=== PATIENT | male | born 1985 | race Caucasian/White ===

== ENCOUNTER 2018-12-03 22:57 | Emergency (ER) | payer SELFPAY ==
[2018-12-03 23:02] VITALS: BP 127/95; PULSE 109; RESP 18; TEMP 36.6; O2SAT 97
--- NOTE | 2018-12-03 23:07 | ED.GENADUL_ITS ---
Discharge Plan Disposition Patient Disposition: HOME Condition: Stable Discharge Details Chief Complaint: Laceration Clinical Impression: Hand laceration Primary Care Provider: None,None ED Provider: Kassandra Regalado Home Meds and New Rx's Prescriptions: No Action No Known Home Meds RF: 0 Discharge Instructions Instructions: Laceration (ED) Additional Instructions: Keep wound clean and dry. Wash the area with soap and water and applied with topical antibiotic ointment 1-2 times daily. Return to the emergency department in 7 days for suture removal or any earlier with any worsening or new concerning symptoms of fever, red streaking, or any worsening symptoms. Discharge Data Discharge Date/Time-TO BE ENTERED AT DEPARTURE: 12/04/18 00:20 Discharge Physician: Kassandra Regalado Medical Decision Making 33-year-old male who presents with right hand laceration sustained when he cut his hand under the edge of a wooden shelf. He denies any foreign body or bony injury. Unknown tetanus status. There is a 2 cm laceration on dorsal hand near base of fourth and fifth metacar pals with no active bleeding, obvious foreign body or bony deformity. Discussed with patient that would recommend an x-ray of his hand to rule out foreign body or fracture but he is declining at this time. He understands the risks of missing diagnoses which can lead to further complications including infection, delayed or abnormal healing, chronic pain and is still declining x- ray at this time. 0010 --wound irrigated well and 3 sutures placed. Wound covered with topical antibiotic ointment and dressing. Patient was instructed to return to the emergency department in 7 days for suture removal and at any time with any worsening symptoms. Medical Records Medical records reviewed: Yes I reviewed the patient's medical records. HPI General Mode of arrival: ambulatory . Date/Time Provider Initiated Documentation: 12/03/18 23:00 . Limitations to Documentation: no limitations . Information obtained by: patient . HPI Narrative: Patient is a 33-year-old male who presents the ED with a right hand laceration sustained just prior to arrival at home. Patient states he is visiting here on vacation and was attempting to reach something off a shelf and cut his right hand on the corner edge of a wooden shelf. He denies any breakage or splinters of the wooden shelf and states it is still intact and denies any foreign bodies within his hand. He denies any bony injury to his right hand. He states he is unsure of his tetanus status. He denies any other injuries, wrist pain. Related Data Home Medications Medication Instructions Recorded Confirmed Unknown [No Known Home Meds] 12/03/18 12/03/18 Allergies Allergy/AdvReac Type Severity Reaction Status Date / Time bee venom protein (honey bee) Allergy Intermediate Unverified 12/03/18 23:06 General Stated Complaint: RashLesion BAILEE: 4 Review of Systems Review of Systems All systems reviewed & are unremarkable except as noted in HPI and below PFSH Medical History No significant past medical history (Acute) Surgical History No significant past surgical history (Acute) Social History Smoking/Tobacco Use Status: Current every day Tobacco Type: cigarettes Alcohol Intake: current Alcohol Intake frequency: a few times a month Drug use: Occasionally Substance use type: marijuana Do you feel safe at home: Yes Do you feel safe in your relationship?: Yes Exam Const General: cooperative, healthy appearing and no acute distress HENMT Head: normal to inspection Mouth: oral mucosae normal Eyes General: appearance normal, both eyes and all related structures Neck Neck: normal visual inspection Resp Effort & Inspection: normal respiratory effort and able to speak in complete sentences Cardio Rate: regular rate Skin General skin exam: no rashes or lesions noted Neuro General: alert, awake and oriented x3 Motor: muscle tone normal throughout Extrem Hand/finger images: 1. 2 cm straight laceration on dorsal aspect of right hand in between fourth and fifth metacarpals distal to wrist. No active bleeding. No obvious foreign bodies. Other: No edema, ecchymosis, bony deformity noted to right hand. No right wrist, right snuffbox tenderness, or wrist deformities noted. Fingers of right hand normal to inspection without evidence of trauma. Psych Appearance: grossly normal Affect: normal affect Course Vital Signs Temperature 97.9 F 12/03/18 23:02 Pulse 109 H 12/03/18 23:02 Respiratory Rate 18 12/03/18 23:02 Blood Pressure 127/95 H 12/03/18 23:02 Pulse Oximetry 97 12/03/18 23:02 Temperature 97.9 F 12/03/18 23:02 Temperature Source Skin 12/03/18 23:02 Pulse 109 H 12/03/18 23:02 Respiratory Rate 18 12/03/18 23:02 Respiratory Effort Non-Labored 12/03/18 23:04 Blood Pressure 127/95 H 12/03/18 23:02 Blood Pressure Position Sitting 12/03/18 23:02 Pulse Oximetry 97 12/03/18 23:02 Oxygen Delivery Method Room Air 12/03/18 23:02 Oxygen Flow Rate 0 12/03/18 23:02 Pain Level 0 12/03/18 23:02 Procedures Laceration Laceration 1: Site: hand Size (cm): 2 Description: linear Depth: simple, single layer Local Anesthetic: Lidocaine 1% and with Epi Amount of anesthesia used (mL): 6 Pre-repair: wound explored, irrigated extensively and deep structures intact Skin layer closed with: nylon Size (cm): 5-0 Number of sutures: 3 Technique: simple, interrupted
== END 2018-12-04 00:20 | disposition home or self-care (01) ==
PROVIDERS: Emergency Provider Physician Assistant
DX: S61.411A Laceration without foreign body of right hand, initial encounter (principal); W45.8XXA Other foreign body or object entering through skin, initial encounter; Z53.29 Procedure and treatment not carried out because of patient's decision for other reasons
CPT/HCPCS: 12001; 90471

== ENCOUNTER 2022-06-02 15:25 | Emergency (ER) | payer SELFPAY ==
[2022-06-02] VITALS (48 sets, daily range): BP systolic 140–158; BP diastolic 87–111; PULSE 70–97; RESP 10–21; TEMP 37.3; O2SAT 95–99
--- NOTE | 2022-06-02 15:45 | DI.RAD_ITS ---
Exam(s) XR PORTABLE CHEST AP EXAM: XR PORTABLE CHEST AP CLINICAL HISTORY: left sided weakness. TECHNIQUE: 2D digital imaging was performed. COMPARISON: No exams were available for comparison FINDINGS: Single AP portable view. Heart size is upper normal. The mediastinum is not widened. Lungs are clear. No infiltrates nor obvious pleural effusions. IMPRESSION: No acute pulmonary findings on this single AP portable view of the chest. DATA REPOSITORY: RADIATION DOSE DELIVERED:
--- NOTE | 2022-06-02 15:45 | RT.EKG_ITS ---
APPROVED REPORT Exam: Resting ECG Reason for Exam: facial droop Patient Location: E HR:85 bpm ECG Measurements Heart Rate 85 AXIS ID 148 P 69 QRSd 97 QRS 74 QT 357 T 38 QTc 423 Conclusion Sinus rhythm...normal P axis, V-rate 60- 99
--- NOTE | 2022-06-02 15:50 | DI.CT_ITS ---
Exam(s) CT BRAIN NECK CTA EXAM: CT BRAIN NECK CTA CLINICAL HISTORY: CVA, left facial droop, left extremity weakness. TECHNIQUE: Imaging Protocol: Axial CT angiography was performed with multi-slice acquisition and mu lti-planar and/or 3D reconstructions. CONTRAST MATERIAL: Intravenous: Omnipaque 350 Contrast volume:structured data in ml COMPARISON: No exams were available for comparison FINDINGS: CTA Neck W: Aortic arch anatomy: The aortic arch anatomy is conventional and there is no significant stenosis at the origin of the great vessels off of the aortic arch. No intimal flap evident. Anterior circulation: Both common carotid arteries ascend with normal luminal diameters. At the level the carotid bulbs and proximal internal carotid arteries there is minimal plaque without hemodynamically significant stenosis evident. Posterior circulation: Both vertebral arteries originate in conventional fashion off of the subclavian arteries and there is no obvious stenosis at the origin of the vertebral arteries. Right vertebral artery is dominant. No evidence of intraluminal thrombosis nor dissection of the lizeth tebral arteries. At the skull base the main contributor to the formation of the basilar artery is the dominant right v ertebral artery. CTA Brain W: Anterior circulation: Both internal carotid arteries are patent in the skull base-carotid canals as well as within the cave rnous sinuses. The supraclinoid aspects of the ICAs are patent. Both A1 segments are patent as are the anterior cer ebral arteries and there is no evidence of aneurysm at the level of the anterior communicating artery . Right middle cerebral artery appears patent. The left middle cerebral artery is occluded at its orig in. Posterior circulation: The basilar artery ascends in the midline. Distally it gives off patent bilateral superior cerebella r arteries. Above this level the basilar artery terminates as patent bilateral posterior cerebral arteries. There is no evidence of aneurysm at the tip of the basilar artery nor elsewhere in the [id number] is. CT BRAIN: There is no evidence of intracranial hemorrhage, mass effect, or shift of midline structures. There are no extra-axial fluid collections. Ventricles are not enlarged or shifted. There are no ring enh ancing lesions in the brain and no abnormal meningeal enhancement. No obvious asymmetric hypodensity in the territory of the occluded left middle cerebral artery. IMPRESSION: 1. Main acute finding here is occlusion of the left middle cerebral artery just beyond its origin. T he right middle cerebral artery is patent as are the other main intracranial arteries. No significan t atherosclerotic disease in the carotid arteries in the neck. No significant stenosis at the caroti d bulbs and proximal internal carotid arteries on either side 2. Patent vertebral arteries in the neck. Right vertebral artery is dominant. No evidence of verte bral artery dissection. Patent posterior circulation vessels in the intracranial compartment. 3. No evidence of intracranial hemorrhage nor obvious territorial infarction at this time. No mass effect. No ring enhancing lesions in the brain and no abnormal meningeal enhancement. Called to ER provider following completion of study 06/02/2022 RADIATION DOSE DELIVERED: 2,156.64mGy.cm Total DLP DATA REPOSITORY: All CT scans at this facility are submitted to the National Radiology Data Registry (NRDR) Dose Index Registry (DIR) with the [employer] (ACR). RADIATION OPTIMIZATION: All CT scans at this facility use at least one of these dose optimization te chniques: automated exposure control; mA and/or kV adjustment per patient size (includes targeted exa ms where dose is matched to clinical indication); or iterative reconstruction.
--- NOTE | 2022-06-02 15:52 | ED.GENADUL_ITS ---
Discharge Plan Disposition Patient Disposition: Transfer-Acute Inpatient Care Specific Acute Inpt Facility: [facility] Condition: Critical Discharge Details Clinical Impression: Cerebral infarction involving middle cerebral artery Primary Care Provider: None,None ED Provider: Riri Mora Home Meds and New Rx's Prescriptions: No Action No Known Home Meds Discharge Data Discharge Date/Time-TO BE ENTERED AT DEPARTURE: 06/02/22 20:07 Medical Decision Making <MICHAEL Luis - Last Filed: 06/02/22 22:53> This 36-year-old male presents with left-sided weakness and headache after breaking up some ice. He states that his left side feels like rubber On assessment he has a left-sided upper extremity and lower extremity weakness and left-sided facial droop Blood pressure mildly elevated other vitals remain stable Secondary to presenting symptoms and exam, CTA of head and neck was ordered and stroke alert, MCA occlusion on left per our radiologist which is inconsistent with presentation Case was discussed with Dr. Gaitan, on-call neurologist at [facility] and she believes patient has a right MCA occlusion which is consistent with patient's exam He was reevaluated every 15 minutes throughout this visit, he is remained on telemetry monitoring and blood pressure has been stable throughout this encounter, he is remained fully alert and oriented and his symptoms actually have been gradually improving His initial NIH stroke scale 7, at time of discussion with neurologist it improved to 3 he improved further to #2 after reassessment tPA was recommended after risk-benefit were reviewed and consent was obtained from patient after discussing adverse effects He is consented to tPA and tolerated administration well, he was observed for approximately half an hour after tPA administration and his symptoms have dramatically improved in fact his NIH stroke scale is now 0 His strength has improved and his facial exam is at baseline He wishes to be full CODE STATUS His EKG is within normal limits His airway is patent And is stable for transport to [facility] at this time, he will go to the emergency department Vitals are stable mild hypertension noted Medical Records Medical records reviewed: Yes I reviewed the patient's medical records. <Olegario Larsen MD - Last Filed: 06/02/22 18:10> Medical Records Medical records narrative: Patient seen, examined and discussed with Ms. Mora. Exam is consistent with acute right MCA thrombosis with left-sided symptoms. On my exam the patient has dysmetria of the left hand, left facial droop, satelliting of the right hand around left. His left leg weakness is improving. Agree with indication for emergent thrombolysis and transfer to tertiary care center. HPI <MICHAEL Luis - Last Filed: 06/02/22 22:53> General Date/Time Provider Initiated Documentation: 06/02/22 15:48 . HPI Narrative: This 36-year-old male presents with numbness and tingling to his left arm, left foot, and left-sided heaviness with headache that started abruptly while he was breaking up some ice. He denies any additional injuries. He states he felt woozy and fell to the left side but denies hitting his head. Denies prior history of similar symptoms in the past. States he is otherwise healthy. Denies chest pain or shortness of breath. Denies any fevers or chills. [place] fine prior to onset of symptoms. Related Data Home Medications Medication Instructions Recorded Confirmed Unknown [No Known Home Meds] 12/03/18 06/02/22 Allergies Allergy/AdvReac Type Severity Reaction Status Date / Time bee venom protein (honey bee) Allergy Intermediate Unverified 06/02/22 16:36 General Stated Complaint: Dizzy/Sync BAILEE: 2 Review of Systems <MICHAEL Luis - Last Filed: 06/02/22 22:53> All systems reviewed & are unremarkable except as noted in HPI and below PFSH <MICHAEL Luis - Last Filed: 06/02/22 22:53> All Active Problems Cerebral infarction involving middle cerebral artery (Acute) No significant past surgical history (Acute) Medical History (Updated 06/02/22 @ 22:52 by MICHAEL Luis) No significant past medical history Social History Smoking/Tobacco Use Status: Current every day Tobacco Type: cigarettes Smoking risk assessment performed?: Yes Alcohol Intake: current Alcohol Intake frequency: a few times a month Drug use: Rarely Substance use type: marijuana Do you feel safe at home: Yes Do you feel safe in your relationship?: Yes Exam <MICHAEL Luis Last Filed: 06/02/22 22:53> Const General: cooperative and no acute distress Orientation: alert and oriented x3 HENMT Other: Left lower facial paralysis, uvula midline, oropharynx patent Eyes Alignment and Position: alignment abnormal Other: Pupils equal round reactive to light and accommodation, no visual loss Resp Effort & Inspection: normal respiratory effort Auscultation: clear to auscultation bilaterally Cardio Rate: regular rate Rhythm: regular rhythm Neuro General: patient alert and patient oriented x3 Cranial Nerves: PERRL and tongue midline Cognition: normal cognition Speech: speech normal Motor: pronator drift and strength abnormal Sensory Exam: no sensory deficits noted Coordination: [id number] test abnormal and [id number]-qr-[id number] test normal Other: Left lower extremity 3 out of 5 strength, left upper extremity 1 out of 5 strength, left pronator drift positive [id number] Course <MICHAEL Luis Last Filed: 06/02/22 22:53> Vital Signs Vital signs: Vital Signs Temperature 37.3 C 06/02/22 15:31 Pulse 91 H 06/02/22 15:31 Respiratory Rate 18 06/02/22 15:31 Blood Pressure 149/108 H 06/02/22 15:31 Pulse Oximetry 99 06/02/22 15:31 Temperature 37.3 C 06/02/22 15:31 Temperature Source Skin 06/02/22 15:31 Pulse 91 H 06/02/22 15:31 Respiratory Rate 18 06/02/22 15:31 Respiratory Effort 06/02/22 15:45 Blood Pressure 149/108 H 06/02/22 15:31 Blood Pressure Position Sitting 06/02/22 15:31 Pulse Oximetry 99 06/02/22 15:31 Oxygen Delivery Method Room Air 06/02/22 15:31 Oxygen Flow Rate 0 06/02/22 15:31 Pain Level 0 06/02/22 15:31 Critical Care Time <MICHAEL Luis Last Filed: 06/02/22 22:53> Critical Care Time Attestation: 60 minutes of critical care time performed with telemetry monitoring, diagnostic imaging interpretation and discussion with on-call radiologist, repeat neurology checks every 15 minutes, consultation with on-call neurologist, tPA administra tion, diagnostic lab interpretation and ultimate transfer to higher level of care
[2022-06-02 16:33] LABS: ALT 50 U/L (16-63); AST 51 U/L (15-37); Albumin 4.4 g/dL (3.4-5.0); Alkaline Phosphatase 102 U/L (46-116); Anion Gap 5.5 mmol/L (3-11); BUN 6 mg/dL (7-18); Bilirubin, Total 0.5 mg/dL (0.2-1.0); CO2 32.5 mmol/L (21.0-32.0); Calcium 9.6 mg/dL (8.5-10.1); Chloride 102 mmol/L (98-107); Estimated GFR 99.41 (mL/min/1.73m2); Glucose 117 mg/dL (74-106); Potassium 4.6 mmol/L (3.5-5.1); Sodium 140 mmol/L (136-145); Total Protein 8.5 g/dL (6.4-8.2); Troponin I < 50 ng/L (<or=60)
[2022-06-02 16:41] LABS: Abs Immature Grans 0.03 10^3/uL (0.0-0.06); Absolute Basophil Count 0.09 10^3/uL (0.0-0.2); Absolute Eosinophil Count 0.18 10^3/uL (0.0-0.7); Absolute Lymphocyte Count 2.57 10^3/uL (1.2-3.4); Absolute Monocyte Count 1.13 10^3/uL (0.1-0.8); Basophils % 0.8; Eosinophils % 1.6; HCT 51.5 % (40.0-50.0); HGB 17.9 g/dL (13.5-17.5); Immature Grans % 0.3; Lymphocytes % 22.6; MCH 34.8 pg (27.0-33.0); MCHC 34.8 % (32.0-36.0); MCV 100 fL (80-95); Monocytes % 9.9; Neutrophils % 64.8; Platelet Count 481 10^3/uL (130-400); RBC 5.15 10^6/uL (4.36-5.78); RDW-SD 51.8 fL; WBC 11.39 10^3/uL (4.4-10.8)
[2022-06-02 16:43] LABS: Absolute Neutrophil Count 7.38 10^3/uL (1.2-6.7)
[2022-06-02] MEDS: Omnipaque 350 MG/ML 100 ML BTL 85 ML IJ (16:46)
[2022-06-02] MEDS: Normal Saline - Diluent 50 ML VIAL IV (16:47)
--- NOTE | 2022-06-02 17:55 | DI.VRAD_ITS ---
PROCEDURE INFORMATION: Exam: Portable XR Chest Exam date and time: 06/02/2022 4:35 PM Age: 36 years old Clinical indication: Other: Left sided weakness TECHNIQUE: Imaging protocol: Portable radiologic exam of the chest. Views: 1 view. COMPARISON: CT BRAIN NECK CTA 06/02/2022 4:03 PM FINDINGS: Lungs: Unremarkable. No consolidation. Pleural spaces: Unremarkable. No pleural effusion. No pneumothorax. Heart/Mediastinum: Unremarkable. No cardiomegaly. Bones/joints: Unremarkable. IMPRESSION: No acute findings. Dictated and Authenticated by: Sonny Newman MD. Ordering:STEPAN Menezes MD
[2022-06-02 19:09] LABS: Troponin I < 50 ng/L (<or=60)
== END 2022-06-02 20:07 | disposition short-term general hospital (02) ==
PROVIDERS: Emergency Provider Physician Assistant
DX: I63.512 Cerebral infarction due to unspecified occlusion or stenosis of left middle cerebral artery (principal); R29.710 NIHSS score 10; G83.9 Paralytic syndrome, unspecified
CPT/HCPCS: 36415; 36416; 70496; 70498; 80053; 82962; 93005; 96365; 99291; 71045; 83735; 84484; 85025; 93010; J2997; J3490

== ENCOUNTER 2023-12-17 14:20 | Emergency (ER) | payer MEDICAID, SELFPAY ==
[2023-12-17] VITALS (39 sets, daily range): BP systolic 112–136; BP diastolic 80–99; PULSE 77–121; RESP 8–22; TEMP 36.6; O2SAT 96–99
--- NOTE | 2023-12-17 14:15 | RT.EKG_ITS ---
APPROVED REPORT Exam: Resting ECG Reason for Exam: Possible stroke Patient Location: E HR:103 bpm ECG Measurements Heart Rate 103 AXIS HI 135 P 75 QRSd 98 QRS 92 QT 339 T 26 QTc 444 Conclusion Sinus tachycardia...rate> 99 sinus tachycardia, normal axis, normal intervals, non ischemic
--- NOTE | 2023-12-17 14:33 | W.ED.GENAD ---
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 HPI Narrative: 38-year-old male history of prior right-sided MCA stroke status post tPA with improvement no residual symptomatology, presents with right upper extremity motor deficits that he noticed over the last 24 hours, having issues using his arm and hand with fine motor activity. No headache no neck pain no nausea no vomiting no lower extremity involvement. Related Data Home Medications ?Medication ?Instructions ?Recorded ?Confirmed Unknown [No Known Home Meds] 12/03/18 12/17/23 Allergies Allergy/AdvReac Type Severity Reaction Status Date / Time bee venom protein (honey bee) Allergy Intermediate Unknown Unverified 12/17/23 14:40 General Stated Complaint: GenMedical BAILEE: 3 Exam Narrative Exam Narrative: Alert oriented interactive Moist mucous membranes normal speech swallowing secretions Normal respiratory effort Noted to be tachycardic with regular pulse Cranial nerves II through XII intact 5-5 strength upper and lower extremities bilaterally, normal speech no ataxia, normal sensation Course Vital Signs Vital signs: Vital Signs Temperature 36.6 C 12/17/23 14:22 Pulse 121 H 12/17/23 14:22 Respiratory Rate 18 12/17/23 14:22 Blood Pressure 112/91 H 12/17/23 14:22 Pulse Oximetry 99 12/17/23 14:22 Temperature 36.6 C 12/17/23 14:22 Temperature Source Temporal Artery Scan 12/17/23 14:22 Pulse 121 H 12/17/23 14:22 Respiratory Rate 18 12/17/23 14:22 Blood Pressure 112/91 H 12/17/23 14:22 Blood Pressure Position Supine 12/17/23 14:22 Pulse Oximetry 99 12/17/23 14:22 Oxygen Delivery Method Room Air 12/17/23 14:22 Oxygen Flow Rate 0 12/17/23 14:22 Medical Decision Making 38-year-old male history of prior right-sided MCA stroke status post tPA with improvement no residual symptomatology, presents with right upper extremity motor deficits that he noticed over the last 24 hours, having issues using his arm and hand with fine motor activity. No headache no neck pain no nausea no vomiting no lower extremity involvement. Neurologically intact, without deficit, noted to be tachycardic on arrival sinus tachycardia on EKG, must consider CVA versus metabolic derangement lower suspicion for infectious process such as meningitis or encephalitis lower suspicion for toxicologic process. Will obtain CTA head and neck, EKG fingerstick, basic labs chest x-ray close reassessment of neurologic symptomatology 14: 59 patient does have history of heavy drinking. Has not drank in a couple of days. Consider component of withdrawal given tachycardia and neurologic symptomatology. Will load p.o. with Librium and administer crystalloid fluid. Patient's heart rate currently 105 before meds 16: 22 evidence of bilateral carotid thrombi. Patient does have decree sensation to light touch right upper extremity and some mild right upper limb ataxia giving him an NIH stroke score of 2. Have placed stat consultation with neurology and vascular team at [facility] awaiting callback 18: 03 discussed case with vascular neurologist Dr. Arnol Duque who has accepted patient for transfer, will initiate heparin will load with aspirin. Patient hemodynamically stable amenable to transfer. Quality:SDOH Health Related Social Needs: No Data to Display PFSH All Active Problems Thrombosis of both carotid arteries (Acute) No significant past surgical history (Acute) Medical History (Updated 12/17/23 @ 18:04 by Manuel Hobson MD) No significant past medical history Social History Smoking/Tobacco Use Status: Current every day Tobacco Type: cigarettes Years smoked: 22 Smoking risk assessment performed?: Yes Alcohol Intake: current Alcohol Intake frequency: a few times a month Alcohol type: beer Drug use: Rarely Substance use type: marijuana Details: Pt states he normally has x6 beers per day; none today 12/17/23 Do you feel safe at home: Yes Do you feel safe in your relationship?: Yes
[2023-12-17 14:46] LABS: Abs Immature Grans 0.04 10^3/uL (0.0-0.06); Absolute Basophil Count 0.04 10^3/uL (0.0-0.2); Absolute Lymphocyte Count 2.11 10^3/uL (1.2-3.4); Absolute Monocyte Count 1.08 10^3/uL (0.1-0.8); Basophils % 0.3 %; Eosinophils % 0.8 %; HCT 46.8 % (40.0-50.0); HGB 16.3 g/dL (13.5-17.5); Immature Grans % 0.3 %; MCH 38.4 pg (27.0-33.0); MCHC 34.8 % (32.0-36.0); MCV 110 fL (80-95); MPV 8.7 fL (8.0-11.0); Monocytes % 8.7 %; Neutrophils % 72.9 %; Platelet Count 328 10^3/uL (130-400); RBC 4.24 10^6/uL (4.36-5.78); RDW 15.6 % (11.8-14.1); RDW-SD 64.2 fL
[2023-12-17] MEDS: Omnipaque 350 MG/ML 100 ML BTL IJ (14:57)
[2023-12-17] MEDS: Normal Saline - Diluent 50 ML VIAL IJ (14:57)
[2023-12-17 15:01] LABS: ALT 29 U/L (16-63); AST 18 U/L (15-37); Albumin 3.8 g/dL (3.4-5.0); Alkaline Phosphatase 105 U/L (46-116); Anion Gap 10.2 mmol/L (3-11); BUN 7 mg/dL (7-18); Bilirubin, Total 0.96 mg/dL (0.2-1.0); CO2 28.8 mmol/L (21.0-32.0); CREATININE 0.9 mg/dL (0.70-1.30); Calcium 9.4 mg/dL (8.5-10.1); Chloride 101 mmol/L (98-107); Estimated GFR 111.42 (mL/min/1.73m2); Glucose 108 mg/dL (74-106); Potassium 3.5 mmol/L (3.5-5.1); Sodium 140 mmol/L (136-145); Total Protein 7.7 g/dL (6.4-8.2)
[2023-12-17 15:06] LABS: INR 1.1 (0.9-1.1); PTT Activated 26.6 sec (23.6-32.8)
[2023-12-17 15:09] LABS: Absolute Neutrophil Count 9.04 10^3/uL (1.2-6.7)
[2023-12-17 15:10] LABS: Diff Comment RBC Morph Reviewed; Macrocytosis 1+
--- NOTE | 2023-12-17 15:10 | DI.CT_ITS ---
Exam(s) CT BRAIN NECK CTA EXAM: CT BRAIN NECK CTA CLINICAL HISTORY: right upper extermity motor deficit, hx stroke. TECHNIQUE: Imaging Protocol: Axial CT angiography was performed with multi-slice acquisition and mu lti-planar and MIP reconstructions. CONTRAST MATERIAL: Intravenous: Omnipaque 350 Contrast volume:70 ml COMPARISON: CT CT BRAIN NECK CTA from 06/02/2022 FINDINGS: CT Head W/O and W contrast: Ventricles and Extra axial spaces: Normal in size and morphology for the patient's age. Hemorrhage: None. Cerebral parenchyma: No evidence of acute infarct or mass. Old infarcts in the or should distributio n of the right frontal and parietal lobes. Also of small area of encephalomalacia high posterior rig ht frontal region. Lacunar infarct adjacent to the right lateral ventricle Midline shift: None. Brainstem/Cerebellum: No acute findings.. Calvarium: Normal. Visualized Paranasal sinuses/Mastoids: Clear. Soft Tissues: Unremarkable. Enhancement: Normal. CTA Brain W: Internal Carotid Arteries: Petrous: Normal. Cavernous: Normal. Cerebral: Normal. Middle Cerebral Arteries: Right: No aneurysm, occlusion or significant stenosis. Left: No aneurysm or occlusion. Focal stenosis again noted proximally. There are multiple collater al vessels distal to this area. Similar appearance to prior exam. Anterior Cerebral Arteries: Right: No aneurysm, occlusion or significant stenosis. Left: No aneurysm, occlusion or significant stenosis. Posterior cerebral Arteries: Right: No aneurysm, occlusion or significant stenosis. Left: No aneurysm, occlusion or significant stenosis. Vertebral Arteries: Right: No aneurysm, occlusion or significant stenosis. Left: No aneurysm, occlusion or significant stenosis. Basilar Artery: No aneurysm, occlusion or significant stenosis. CTA Neck W: Common Carotid: Right: Long area plaque noted within the mid to distal portion causing critical stenosis with only m inimal lumen. The common carotid bulb appears normal. Left: Significant plaque at the distal common carotid artery and common carotid bulb with eccentric plaque extending 2.3 cm. External Carotid: Right: No dissection, occlusion or significant stenosis. Left: No dissection, occlusion or significant stenosis. Internal Carotid: Right: No dissection, occlusion or significant stenosis. Left: Plaque at the common carotid bulb extends is into the proximal internal carotid artery. Vertebral Artery: Right: No dissection, occlusion or significant stenosis. Left: No dissection, occlusion or significant stenosis. Lung Apices: No acute findings. Bones: No acute abnormality. Soft Tissues: Normal. IMPRESSION: 1. CTA brain: A focal area of stenosis proximal left MCA. Similar appearance to prior. 2. Head CT: Old infarct in the right frontal and parietal lobes. No evidence of acute infarct or hem orrhage. 3. CTA neck: Long segment of thrombus noted in the mid to distal right common carotid artery. Thrombus in the left common carotid bulb with extension into the proximal right internal carotid rabia ry. 4. Findings called to Dr. Lagos of the emergency department. RADIATION DOSE DELIVERED: Total DLP DATA REPOSITORY: All CT scans at this facility are submitted to the National Radiology Data Registry (NRDR) Dose Index Registry (DIR) with the [employer] ([employer]). RADIATION OPTIMIZATION: All CT scans at this facility use at least one of these dose optimization te chniques: automated exposure control; mA and/or kV adjustment per patient size (includes targeted exa ms where dose is matched to clinical indication); or iterative reconstruction.
[2023-12-17 15:15] LABS: TSH (W/Ref FT4) 1.22 uIU/mL (0.36-3.74)
[2023-12-17 15:18] LABS: ETHANOL BLOOD < 3.0 mg/dL (<10)
--- NOTE | 2023-12-17 15:21 | DI.RAD_ITS ---
Exam(s) XR CHEST 2V PA LATERAL EXAM: XR CHEST 2V PA LATERAL CLINICAL HISTORY: tachycardia, r sided weakness TECHNIQUE: 2D digital imaging was performed. Two views. COMPARISON: CR,XR XR PORTABLE CHEST AP from 06/02/2022 FINDINGS: HEART: Normal size. Aorta: Not dilated. PULMONARY VASCULATURE: Normal. MEDIASTINUM: Unremarkable. LUNGS: Clear. PLEURAL SPACE: No pleural effusion or pneumothorax. BONE:Unremarkable for age. SOFT TISSUES: Unremarkable. IMPRESSION: No acute abnormality. DATA REPOSITORY: RADIATION DOSE DELIVERED:
[2023-12-17] MEDS: Normal Saline 1,000 ML 1000 ML IV (15:26)
[2023-12-17] MEDS: chlordiazePOXIDE 25 MG CAP 50 MG PO (15:26)
[2023-12-17 15:55] LABS: Bilirubin Negative (Negative); Blood Negative (Negative); Clarity Clear (Clear); Glucose Negative (Negative); Ketones 40 mg/dL (Negative); Leukocyte Esterase Negative (Negative); Nitrite Negative (Negative); pH 6.5 (5-8)
[2023-12-17 16:04] LABS: *AMPHETAMINES SCREEN URINE Negative (Negative); *BARBITURATES SCREEN URINE Negative (Negative); *BENZODIAZEPINES SCREEN URINE Negative (Negative); Cannabinoids THC Positive (Negative); Cocaine Screen,Urine Negative (Negative); METHADONE URINE SCREEN Negative (Negative); OPIATES URINE SCREEN Negative (Negative)
[2023-12-17 16:06] LABS: Tricyclic Antidepressants Negative (Negative)
[2023-12-17] MEDS: Aspirin 81 MG CHEW 324 MG CH (17:49)
[2023-12-17] MEDS: Heparin in 0.45% NaCl 25,000 UNIT/250 ML BAG 15 UNIT IV (17:49)
== END 2023-12-17 19:45 | disposition short-term general hospital (02) ==
PROVIDERS: Emergency Provider Emergency Medicine
DX: I65.23 Occlusion and stenosis of bilateral carotid arteries (principal); R00.0 Tachycardia, unspecified; F17.210 Nicotine dependence, cigarettes, uncomplicated; Z86.73 Personal history of transient ischemic attack (TIA), and cerebral infarction without residual deficits
CPT/HCPCS: 36415; 70496; 70498; 80053; 80307; 82962; 93005; 96360; 99285; 71046; 80320; 81003; 83735; 84443; 85025; 85610; 85730; 93010; J1644; J3490

== ENCOUNTER 2024-06-08 05:36 | Emergency (ER) | payer MEDICAID, SELFPAY ==
[2024-06-08 05:41] VITALS: BP 115/63; PULSE 126; RESP 16; TEMP 36.6; O2SAT 98
[2024-06-08] MEDS: Lidocaine 2% Jelly 11 ML SYR (06:10)
[2024-06-08 06:24] VITALS: PULSE 90
--- NOTE | 2024-06-08 06:47 | ED.GENADUL_ITS ---
Discharge Plan Disposition Patient Disposition: Home Condition: Good Discharge Details Chief Complaint: GenMedical Clinical Impression: Complete rectal prolapse Primary Care Provider: None,None ED Provider: Pieter Peters Home Meds and New Rx's Prescriptions: No Action No Known Home Meds Discharge Instructions Instructions: Rectal prolapse in adults Discharge Data Discharge Physician: Pieter Peters HPI General Date/Time Provider Initiated Documentation: 06/08/24 05:38 . HPI Narrative: The patient is a 38-year-old male, with a past medical history significant for recurrent rectal prolapse, who presents emergency department this morning complaining of rectal prolapse that has been able to reduce himself at home. The patient states that he always has rectal prolapse whenever he has a bowel movement during the day. He can usually take a cold shower and get the prolapse to reduce, but he was unable to after multiple attempts this morning. Related Data Home Medications ?Medication ?Instructions ?Recorded ?Confirmed Unknown [No Known Home Meds] 12/03/18 06/08/24 Allergies Allergy/AdvReac Type Severity Reaction Status Date / Time bee venom protein (honey bee) Allergy Intermediate Unknown Unverified 06/08/24 05:44 General Stated Complaint: GenMedical BAILEE: 3 Exam Const General: cooperative and uncomfortable Cardio Rate: tachycardic Rhythm: regular rhythm GI Inspection: normal to inspection Palpation: soft Auscultation: normal bowel sounds Rectal Exam: visual inspection abnormal other (Prolapse) Neuro General: patient alert, patient oriented x3, moves all extremities, no focal motor deficits and CN's II-XI intact bilaterally Course Vital Signs Vital signs: Vital Signs Temperature 36.6 C 06/08/24 05:41 Pulse 126 H 06/08/24 05:41 Respiratory Rate 16 06/08/24 05:41 Blood Pressure 115/63 06/08/24 05:41 Pulse Oximetry 98 06/08/24 05:41 Temperature 36.6 C 06/08/24 05:41 Pulse 90 06/08/24 06:24 Respiratory Rate 16 06/08/24 05:41 Respiratory Effort Normal 06/08/24 06:08 Respiratory Depth Normal 06/08/24 06:08 Respiratory Pattern Normal 06/08/24 06:08 Blood Pressure 115/63 06/08/24 05:41 Pulse Oximetry 98 06/08/24 05:41 Pain Level 2 06/08/24 05:41 Medical Decision Making Medical Records Medical records narrative: The patient was seen and examined. He had topical lidocaine jelly applied to his prolapsed rectum and left in place with an ice bag for 10 minutes. The rectal prolapse was then reduced with simple pressure. The patient will be allowed to sit in the department for a few minutes to allow for relaxation of the sphincter and resorption of the edematous prolapse. Will be discharged to follow-up for consideration for referral to surgery for tightening of the sphincter. Quality:SDOH Health Related Social Needs: No Data to Display PFSH All Active Problems Complete rectal prolapse (Acute) No significant past surgical history (Acute) Medical History (Updated 06/08/24 @ 07:09 by Pieter Peters MD) No significant past medical history Social History Smoking/Tobacco Use Status: Current every day Tobacco Type: cigarettes Years smoked: 22 Smoking risk assessment performed?: Yes Alcohol Intake: current Alcohol Intake frequency: a few times a week Alcohol type: beer Drug use: Rarely Substance use type: marijuana Details: Pt states he normally has x6 beers per day; none today 12/17/23 Do you feel safe at home: Yes Do you feel safe in your relationship?: Yes
[2024-06-08 07:15] VITALS: BP 116/84; PULSE 97; RESP 14; O2SAT 99
== END 2024-06-08 07:19 | disposition home or self-care (01) ==
PROVIDERS: Emergency Provider Emergency Medicine Emergency Medical Services
DX: K62.3 Rectal prolapse (principal); F17.210 Nicotine dependence, cigarettes, uncomplicated
CPT/HCPCS: 99283